=== PATIENT | female | born 1980 | race Caucasian/White ===

== ENCOUNTER 2017-08-28 11:20 | Emergency (ER) | payer OTHER ==
[2017-08-28 11:22] VITALS: BP 148/94; PULSE 67; RESP 20; TEMP 98.9; O2SAT 100
[2017-08-28] MEDS ORDERED: Lidocaine 5% Patch TD STA (11:28)
[2017-08-28] MEDS ORDERED: Oxycodone/Acetaminophen 5/325 mg Tab PO STA (11:28)
--- NOTE | 2017-08-28 11:28 | C.PDOC ---
History Of Present Illness R FOOT INJURY ONSET YEST. PS MISSTEPPED, TWISTED R FOOT. AMBUL ON SCENE. CO PERSIST PAIN, SWELLING TOP OF FOOT. PAIN WORSE W PALPATION, WEIGHT BEAR. DENIES OTHER ASSOC INJURY. NO RELIEF MOTRIN 800 @ 0800 EXAM MILD DIST EXT R FOOT +SWELLING DORSAL MID FOOT W GEN TEND. NO GROSS DEFORM. SKIN INTACT NO BRUISING GAIT LIMITED WT BEAR R FOOT REMAINDER NEG Time Seen by Provider: 08/28/17 11:22 Chief Complaint (Nursing): Lower Extremity Problem/Injury History Per: Patient History/Exam Limitations: no limitations Onset/Duration Of Symptoms: Days (1) Current Symptoms Are (Timing): Still Present Recent travel outside of the [place]: No Past Medical History Reviewed: Historical Data, Nursing Documentation, Vital Signs Vital Signs: Last Vital Signs Temp 98.9 F 08/28/17 11:21 Pulse 67 08/28/17 11:21 Resp 20 08/28/17 11:21 BP 148/94 H 08/28/17 11:21 Pulse Ox 100 08/28/17 12:15 - Medical History PMH: Anxiety, Asthma, Back Problems, Cardia Arrhythmia, Depression, Emphysema, Fractures (HANDS,FEET), Gastritis, Gastrointestinal Ulcer, Gall Bladder Disease , Kidney Stones, Chronic Kidney Disease - [facility] Procedures APPLICATION OF SPLINT (11/12/13) Family History: States: No Known Family Hx - Social History Hx Tobacco Use: Yes Hx Alcohol Use: Yes Hx Substance Use: No - Immunization History Hx Tetanus Toxoid Vaccination: Yes Hx Influenza Vaccination: No Hx Pneumococcal Vaccination: No Review Of Systems Except As Marked, All Systems Reviewed And Found Negative. Musculoskeletal: Positive for: Foot Pain (Right foot with swelling). Negative for: Leg Pain Neurological: Negative for: Weakness, Numbness Physical Exam - Physical Exam Appears: Non-toxic, In Acute Distress (Mild) Skin: Warm, Dry, No Rash Extremity: No Deformity, Other (Right Foot - Swelling to dorsal mid foot with general tenderness. Intact. No bruising.) Gait: Other (Limited with weight bearing to right foot) ED Course And Treatment O2 Sat by Pulse Oximetry: 100 (RA) Pulse Ox Interpretation: Normal - Other Rad X-Ray - Right Foot X-Ray: Interpreted by Me, Viewed By Me Interpretation: NEG Medical Decision Making Medical Decision Making: PLAN: * X-Ray - Right Foot * Percocet PO * Lidoderm TD Disposition Counseled Patient/Family Regarding: Studies Performed, Diagnosis, Need For Followup, Rx Given - Disposition Referrals: YOUR,EXHIB[facility]ILDER [Other] Disposition: HOME/ ROUTINE Disposition Time: 11:49 Condition: IMPROVED Prescriptions: oxyCODONE/Acetaminophen [Percocet 5/325 mg Tab] 1 ea PO QID #8 tab Instructions: Foot Sprain (ED) Forms: [employer] (Citizen [place]), Work Excuse - Clinical Impression Clinical Impression: Foot sprain - Scribe Statement The provider has reviewed the documentation as recorded by the Anna Santacruz Provider Attestation: All medical record entries made by the Anna were at my direction and personally dictated by me. I have reviewed the chart and agree that the record accurately reflects my personal performance of the history, physical exam, medical decision making, and the department course for this patient. I have also personally directed, reviewed, and agree with the discharge instructions and disposition.
[2017-08-28] MEDS ORDERED: Oxycodone/Acetaminophen 5/325 mg Tab ONE (11:33)
[2017-08-28] MEDS ORDERED: Lidocaine 5% Patch TD ONE (11:33)
--- NOTE | 2017-08-28 12:01 | RAD ---
PROCEDURE: Right Foot Radiographs. HISTORY: Trauma COMPARISON: None. FINDINGS: BONES: There is no acute displaced fracture or bone destruction. Bone alignment and mineralization are normal. JOINTS: There is moderate hallucis valgus and degenerative osteoarthrosis in the 1st MTP joint. There is a prominent spur at the medial base of the proximal phalanx of the 2nd toe. SOFT TISSUES: Normal. OTHER FINDINGS: None. IMPRESSION: No acute displaced fracture or dislocation. Moderate hallux valgus.
== END 2017-08-28 11:54 | disposition home or self-care (01) ==
LOC: C.ER 11:20
DX: S93.601A Unspecified sprain of right foot, initial encounter (principal); X50.1XXA Overexertion from prolonged static or awkward postures, initial encounter; Y92.89 Other specified places as the place of occurrence of the external cause

== ENCOUNTER 2017-10-06 14:29 | Emergency (ER) | payer OTHER ==
[2017-10-06 14:32] VITALS: BMI 30.9
[2017-10-06 14:36] VITALS: RESP 18
[2017-10-06] MEDS ORDERED: Sodium Chloride 0.9% 1,000 ML IV ONE (14:39)
[2017-10-06] MEDS ORDERED: DiphenhydrAMINE 50 mg/ml Inj IVP STA (14:40)
--- NOTE | 2017-10-06 14:41 | C.PDOC ---
History Of Present Illness 37-year-old female, presents to the emergency department with complaints of left sided frontal headache x4 days, that is persistent in nature and associated with light sensitivity. Patient is taking Ibuprofen without relief. She denies numbness/weakness, facial droop, slurred speech, visual changes, sensory changes, chest pain, shortness of breath, dizziness, or any other associated symptoms. No other complaints at this time. Denies a Hx of similar headaches or migraine. Time Seen by Provider: 10/06/17 14:31 Chief Complaint (Nursing): Headache History Per: Patient History/Exam Limitations: no limitations Onset/Duration Of Symptoms: Days Current Symptoms Are (Timing): Still Present Severity: Moderate Past Medical History Reviewed: Historical Data, Nursing Documentation, Vital Signs Vital Signs: Last Vital Signs Temp 98.8 F 10/06/17 16:59 Pulse 60 10/06/17 16:59 Resp 18 10/06/17 16:59 BP 161/90 H 10/06/17 16:59 Pulse Ox 98 10/06/17 16:59 - Medical History PMH: Anxiety, Asthma, Back Problems, Cardia Arrhythmia, Depression, Emphysema, Fractures (HANDS,FEET), Gastritis, Gastrointestinal Ulcer, Gall Bladder Disease , Kidney Stones, Chronic Kidney Disease - [facility] Procedures APPLICATION OF SPLINT (11/12/13) Family History: States: No Known Family Hx - Social History Hx Tobacco Use: Yes Hx Alcohol Use: Yes Hx Substance Use: No - Immunization History Hx Tetanus Toxoid Vaccination: No Hx Influenza Vaccination: No Hx Pneumococcal Vaccination: No Review Of Systems Except As Marked, All Systems Reviewed And Found Negative. Constitutional: Negative for: Fever, Chills Eyes: Positive for: Other (Photophobia) Cardiovascular: Negative for: Chest Pain Respiratory: Negative for: Shortness of Breath Gastrointestinal: Negative for: Nausea, Vomiting Neurological: Positive for: Headache. Negative for: Weakness, Numbness, Dizziness Physical Exam - Physical Exam Appears: Non-toxic, No Acute Distress, Other (Mild discomfort) Skin: Warm, Dry, No Rash Head: Atraumatic, Normacephalic Eye(s): bilateral: Normal Inspection, PERRL, EOMI Nose: Normal Oral Mucosa: Moist Lips: Normal Appearing Neck: Normal ROM Chest: Symmetrical Cardiovascular: Rhythm Regular, No Murmur Respiratory: Normal Breath Sounds, No Accessory Muscle Use Extremity: Normal ROM Neurological/Psych: Oriented x3, Normal Speech, Normal Cognition, Normal Cranial Nerves, Normal Motor, Normal Sensation, Normal Reflexes, Other (No focal deficits) ED Course And Treatment - Laboratory Results Result Diagrams: 10/06/17 15:09 10/06/17 15:09 O2 Sat by Pulse Oximetry: 99 (RA) Pulse Ox Interpretation: Normal Progress Note: CT Head, and bloodwork ordered and reviewed. Patient treated with Benadryl, Toradol, Reglan and IVFs. Disposition Counseled Patient/Family Regarding: Studies Performed, Diagnosis, Need For Followup, Rx Given - Disposition Referrals: Chadwick Cain MD [Staff Provider] - Tony Nicolas MD [Staff Provider] - Disposition: HOME/ ROUTINE Disposition Time: 17:00 Condition: STABLE Additional Instructions: FOLLOW UP WITH YOUR DOCTOR IN 1-2 DAYS IF SYMPTOMS PERSIST, FOLLOW UP WITH NEUROLOGY USE MEDICATION NEEDED RETURN TO ER IF SYMPTOMS WORSEN Prescriptions: Acetaminophen/Butalbital/Caf [Fioricet] 1 tab PO TID PRN #30 tab PRN Reason: Headache Instructions: Acute Headache (ED) Forms: [employer] (Yi) Print Language: SPANISH - POA Present On Arrival: None - Clinical Impression Clinical Impression: Headache - Scribe Statement The provider has reviewed the documentation as recorded by the Scribe (Lang Alberts) All medical record entries made by the Scribe were at my direction and personally dictated by me. I have reviewed the chart and agree that the record accurately reflects my personal performance of the history, physical exam, medical decision making, and the department course for this patient. I have also personally directed, reviewed, and agree with the discharge instructions and disposition.
[2017-10-06] MEDS ORDERED: DiphenhydrAMINE 50 mg/ml Inj ONE (14:51)
[2017-10-06] MEDS ORDERED: Sodium Chloride 0.9% 1,000 ML ONE (14:51)
[2017-10-06 15:20] LABS: BASO # 0.2 K/uL (0.0-0.2); BASO % 1.5 % (0.0-2.0); EOS # 0.2 K/uL (0.0-0.7); EOS % 1.9 % (0.0-4.0); HEMOGLOBIN 12.6 g/dL (11.0-16.0); LYMPH # 3.9 K/uL (1.0-4.3); LYMPH % 33.5 % (20.0-40.0); MEAN CELL VOLUME 86.7 fL (81.0-99.0); MEAN CORPUSCULAR HEMOGLOBIN 29.5 pg (27.0-31.0); MEAN PLATELET VOLUME 9.1 fL (7.2-11.7); MONO # 0.7 K/uL (0.0-0.8); MONO % 5.6 % (0.0-10.0); NEUT # 6.8 K/uL (1.8-7.0); NEUT % 57.5 % (50.0-75.0); RBC 4.27 Mil/uL (3.80-5.20); RED CELL DISTRIBUTION WIDTH 14.3 % (11.5-14.5); WHITE BLOOD COUNT 11.8 K/uL (4.8-10.8)
[2017-10-06 15:28] LABS: BLOOD UREA NITROGEN 11 mg/dL (7-17)
[2017-10-06 15:29] LABS: ALB/GLOB RATIO 1.4 (1.0-2.1); ALBUMIN 4.2 g/dL (3.5-5.0); ALT/SGPT 41 U/L (9-52); AST/SGOT 27 U/L (14-36); CALCIUM 9.2 mg/dl (8.6-10.4); GFR AFRICAN-AMERICAN > 60; GFR NON-AFRICAN AMERICAN > 60
--- NOTE | 2017-10-06 15:29 | CT ---
PROCEDURE: CT HEAD WITHOUT CONTRAST. HISTORY: PERSISTENT HEADACHE COMPARISON: CT head dated 07/02/2016. TECHNIQUE: Axial computed tomography images were obtained through the head/brain without intravenous contrast. Radiation dose: Total exam DLP = 971.3 mGy-cm. This CT exam was performed using one or more of the following dose reduction techniques: Automated exposure control, adjustment of the mA and/or kV according to patient size, and/or use of iterative reconstruction technique. FINDINGS: HEMORRHAGE: No intracranial hemorrhage. BRAIN: No mass effect or edema. No atrophy or chronic microvascular ischemic changes. VENTRICLES: Unremarkable. No hydrocephalus. CALVARIUM: Unremarkable. PARANASAL SINUSES: Unremarkable as visualized. No significant inflammatory changes. MASTOID AIR CELLS: Unremarkable as visualized. No inflammatory changes. OTHER FINDINGS: Right supraorbital piercing. IMPRESSION: No acute intracranial pathology.
[2017-10-06 17:00] VITALS: BP 161/90; PULSE 60; TEMP 98.8
[2017-10-06 17:07] VITALS: O2SAT 99
== END 2017-10-06 17:13 | disposition home or self-care (01) ==
LOC: C.ER 14:29
DX: R51 Headache (principal); J43.9 Emphysema, unspecified; N18.9 Chronic kidney disease, unspecified; Z87.891 Personal history of nicotine dependence
CPT/HCPCS: 70450; 80053; 85025; 96374; 96375; 99285; J1200; J1885; J2765; J7040

== ENCOUNTER 2018-02-04 13:59 | Emergency (ER) | payer OTHER ==
[2018-02-04 13:59] VITALS: BMI 30.9
[2018-02-04 14:20] VITALS: RESP 16; TEMP 98
--- NOTE | 2018-02-04 14:48 | RAD ---
HISTORY: COMPARISON: 11/03/2016. TECHNIQUE: Chest PA and lateral FINDINGS: LINES AND TUBES: None. LUNG AND PLEURA: The lungs are well inflated and clear. No pleural effusion or pneumothorax. HEART AND MEDIASTINUM: The heart is not enlarged. The hilar and mediastinal contours are within normal limits. SKELETAL STRUCTURES: The bony structures are within normal limits for the patient's age. VISUALIZED UPPER ABDOMEN: Normal. OTHER FINDINGS: None. IMPRESSION: No active pulmonary disease.
[2018-02-04 14:56] LABS: BASO # 0.1 K/uL (0.0-0.2); BASO % 1.1 % (0.0-2.0); EOS # 0.1 K/uL (0.0-0.7); HEMOGLOBIN 12.3 g/dL (11.0-16.0); LYMPH # 3.3 K/uL (1.0-4.3); LYMPH % 26.2 % (20.0-40.0); MEAN CELL VOLUME 86.9 fL (81.0-99.0); MEAN CORPUSCULAR HEMOGLOBIN 29.3 pg (27.0-31.0); MEAN CORPUSCULAR HGB CONC 33.7 g/dL (33.0-37.0); MEAN PLATELET VOLUME 9.3 fL (7.2-11.7); MONO # 0.7 K/uL (0.0-0.8); MONO % 5.8 % (0.0-10.0); NEUT # 8.2 K/uL (1.8-7.0); NEUT % 65.9 % (50.0-75.0); NRBC % 0.1 % (0.0-2.0); RBC 4.21 Mil/uL (3.80-5.20); RED CELL DISTRIBUTION WIDTH 15.1 % (11.5-14.5); WHITE BLOOD COUNT 12.4 K/uL (4.8-10.8)
[2018-02-04 15:08] LABS: ALB/GLOB RATIO 1.4 (1.0-2.1); ALT/SGPT 26 U/L (9-52); AST/SGOT 20 U/L (14-36); BLOOD UREA NITROGEN 12 mg/dL (7-17); CALCIUM 9.2 mg/dl (8.6-10.4); GFR AFRICAN-AMERICAN > 60; GFR NON-AFRICAN AMERICAN > 60
--- NOTE | 2018-02-04 15:18 | C.PDOC ---
History Of Present Illness 37 y/o F p/w chest pain since last night. Pain began at rest, L sided chest, nonradiating, sharp, associated with lightheadedness. Patient denies fever, chills, abdominal pain, vomiting, leg swelling. Time Seen by Provider: 02/04/18 14:19 Chief Complaint (Nursing): Chest Pain Past Medical History Vital Signs: Last Vital Signs Temp 98 F 02/04/18 14:17 Pulse 71 02/04/18 14:17 Resp 16 02/04/18 14:17 BP 147/79 02/04/18 14:17 Pulse Ox 98 02/04/18 15:24 - Medical History PMH: Anxiety, Asthma, Back Problems, Cardia Arrhythmia, Depression, Emphysema, Fractures (HANDS,FEET), Gastritis, Gastrointestinal Ulcer, Gall Bladder Disease , HTN (?), Kidney Stones, Chronic Kidney Disease - [facility] Procedures APPLICATION OF SPLINT (11/12/13) Family History: States: Unknown Family Hx - Social History Hx Tobacco Use: Yes Hx Alcohol Use: Yes Hx Substance Use: No - Immunization History Hx Tetanus Toxoid Vaccination: No Hx Influenza Vaccination: No Hx Pneumococcal Vaccination: No Review Of Systems Except As Marked, All Systems Reviewed And Found Negative. Constitutional: Negative for: Fever Gastrointestinal: Negative for: Vomiting Physical Exam - Physical Exam Additional Physical Exam Comments: Gen: NAD Head: NC Eyes: PERRL ENT: MMM Neck: Supple Chest: No reproducible tenderness CV: Regular rate Lungs: CTA b/l Abd: Soft, NT Back: No CVA tenderness Extremities: No edema Skin: No rash Neuro: Alert, no focal deficit ED Course And Treatment - Laboratory Results Result Diagrams: 02/04/18 14:53 02/04/18 14:53 O2 Sat by Pulse Oximetry: 98 Medical Decision Making Medical Decision Making: EKG NSR, regular rate, small T wave inversions inferolaterally, not largely changed from previous EKGs in the last 2 years. CXR FINDINGS: LINES AND TUBES: None. LUNG AND PLEURA: The lungs are well inflated and clear. No pleural effusion or pneumothorax. HEART AND MEDIASTINUM: The heart is not enlarged. The hilar and mediastinal contours are within normal limits. SKELETAL STRUCTURES: The bony structures are within normal limits for the patient's age. VISUALIZED UPPER ABDOMEN: Normal. OTHER FINDINGS: None. IMPRESSION: No active pulmonary disease. Unlikely cardiac in origin but will check troponin in this chest pain since yesterday. Will treat with toradol for possible MSK etiology and reassess. Patient does feel slightly better after treatment. Will discharge, f/u PMD, return to ED for worsening pain, dyspnea, or any other problem. Disposition - Disposition Disposition: HOME/ ROUTINE Disposition Time: 15:45 Condition: STABLE Prescriptions: Acetaminophen [Tylenol 325mg tab] 2 tab PO Q4H #30 tab Instructions: Chest Pain Forms: [employer] (Sinhala) - Clinical Impression Clinical Impression: Chest pain
[2018-02-04 15:20] LABS: CK-MB 0.48 ng/mL (0.0-3.38)
[2018-02-04 15:56] VITALS: BP 149/86; PULSE 61; O2SAT 100
--- NOTE | 2018-02-07 14:43 | CARD ---
APPROVED REPORT EKG Measurement Heart [id number] <Conclusion> Normal sinus rhythm Cannot rule out Inferior infarct, age undetermined Abnormal ECG
== END 2018-02-04 15:55 | disposition home or self-care (01) ==
LOC: C.ER 13:59
DX: R07.9 Chest pain, unspecified (principal)
CPT/HCPCS: 71046; 80053; 82550; 82553; 84484; 85025; 93005; 96374; 99284; J1885

== ENCOUNTER 2018-04-02 12:51 | Emergency (ER) | payer BC, OTHER ==
[2018-04-02 12:52] VITALS: BMI 30.9
[2018-04-02 13:12] VITALS: BP 159/100; PULSE 80; RESP 20; TEMP 99.3; O2SAT 97
--- NOTE | 2018-04-02 13:52 | C.PDOC ---
History Of Present Illness 37 year old female, with PMHx of asthma, gastritis, depression, anxiety, presents to ED for evaluation of palpitations associated with shortness of breath for the past 2 days. Notes she feels extremely anxious, has shaking and tightness in her throat. Patient states her symptoms are consistent with prior panic attack. Notes she ran out of her Xanax and is unable to fill it until her PMD returns. Notes having blood work done recently with normal results. Denies chest pain, nausea, vomiting, or any other associated symptoms at this time. PCP: Tony Nicolas Time Seen by Provider: 04/02/18 13:10 Chief Complaint (Nursing): Palpitations History Per: Patient History/Exam Limitations: no limitations Onset/Duration Of Symptoms: Days Current Symptoms Are (Timing): Still Present Recent travel outside of the [place]: No Additional History Per: Patient Past Medical History Reviewed: Historical Data, Nursing Documentation, Vital Signs Vital Signs: Last Vital Signs Temp 99.3 F 04/02/18 13:08 Pulse 80 04/02/18 13:08 Resp 20 04/02/18 13:08 BP 159/100 H 04/02/18 13:08 Pulse Ox 97 04/02/18 14:04 - Medical History PMH: Anxiety, Asthma, Back Problems, Cardia Arrhythmia, Depression, Emphysema, Fractures (HANDS,FEET), Gastritis, Gastrointestinal Ulcer, Gall Bladder Disease , HTN (?), Kidney Stones, Chronic Kidney Disease - [facility] Procedures APPLICATION OF SPLINT (11/12/13) Family History: States: Diabetes - Social History Hx Tobacco Use: Yes Hx Alcohol Use: Yes Hx Substance Use: No - Immunization History Hx Tetanus Toxoid Vaccination: No Hx Influenza Vaccination: No Hx Pneumococcal Vaccination: No Review Of Systems Except As Marked, All Systems Reviewed And Found Negative. Constitutional: Negative for: Fever, Chills Cardiovascular: Positive for: Palpitations. Negative for: Chest Pain Respiratory: Positive for: Shortness of Breath. Negative for: Cough Neurological: Negative for: Headache Psych: Positive for: Anxiety. Negative for: Suicidal ideation Physical Exam - Physical Exam Appears: Non-toxic, No Acute Distress Skin: Normal Color, Warm, Dry Head: Atraumatic, Normacephalic Eye(s): bilateral: Normal Inspection Oral Mucosa: Moist Neck: Normal ROM, Supple Lymphatic: Deferred Chest: Symmetrical Cardiovascular: Rhythm Regular Respiratory: Normal Breath Sounds, No Rales, No Rhonchi, No Wheezing Gastrointestinal/Abdominal: Normal Exam, Soft, No Tenderness Back: Normal Inspection Extremity: Normal ROM Neurological/Psych: Oriented x3, Normal Speech, Other (anxious) ED Course And Treatment O2 Sat by Pulse Oximetry: 97 (RA) Pulse Ox Interpretation: Normal Medical Decision Making Medical Decision Making: Impression: 37 year old female presents with anxiety attack. Plan: * Xanax * Reassess Disposition Counseled Patient/Family Regarding: Diagnosis - Disposition Referrals: Tony Nicolas MD [Staff Provider] - Disposition: HOME/ ROUTINE Disposition Time: 13:48 Condition: IMPROVED Additional Instructions: Lynette, thank you for letting us take care of you today. Return to the ER if your symptoms worsen, or if any problems. Take the medication listed below as prescribed. Follow up with your doctor next week for a re-evaluation. Best of luck to you with your upcoming move to [place]!!! Prescriptions: Albuterol HFA [Ventolin HFA 90 mcg/actuation (8 g)] 2 puff IH [id number] PRN #1 inhaler PRN Reason: Wheezing Alprazolam [Xanax] 1 tab PO TID PRN #12 tab PRN Reason: Anxiety Instructions: Anxiety, Adult (DC), Panic Disorder (DC) Forms: General Discharge Instructions Print Language: GERMAN - POA Present On Arrival: None - Clinical Impression Clinical Impression: Anxiety - Scribe Statement The provider has reviewed the documentation as recorded by the Petronaibe Nasir Rosario All medical record entries made by the Scribe were at my direction and personally dictated by me. I have reviewed the chart and agree that the record accurately reflects my personal performance of the history, physical exam, medical decision making, and the department course for this patient. I have also personally directed, reviewed, and agree with the discharge instructions and disposition.
--- NOTE | 2018-04-05 15:03 | CARD ---
APPROVED REPORT Date of service: 04/02/2018 EKG Measurement Heart [id number] <Conclusion> Normal sinus rhythm Possible Left atrial enlargement Cannot rule out Inferior infarct, age undetermined Abnormal ECG
== END 2018-04-02 14:16 | disposition home or self-care (01) ==
LOC: C.ER 12:51
DX: F41.9 Anxiety disorder, unspecified (principal)